=== PATIENT | female | born 1990 | race Caucasian/White ===

== ENCOUNTER 2017-08-17 17:44 | Emergency (ER) | payer OTHER ==
[~2017-08-17] VITALS: Ht 160 cm; Wt 51.5 kg
[~2017-08-17 17:44] MED LIST: BACTRIM,SEPT1 TABLET PO; Levaquin PO; MIRALAX17 GM PO; MOTRIN800 MG PO; Motrin PO; NAPROSYN500 MG PO; NOHOMEMEDS; PERCOCET 5/31 TABLET PO; Percocet 5/325,Endoc PO
[2017-08-17] MEDS ORDERED: MOTRIN600 MG PO (19:22)
[2017-08-17] MEDS ORDERED: PERCOCET 5/31 TABLET PO (19:22)
[2017-08-17 20:09] VITALS: BP 107/77
== END 2017-08-17 20:12 | disposition home or self-care (01) ==
LOC: EME 17:44
PROC: 2W3CX1Z Immobilization of Right Lower Arm using Splint (ICD-10-PCS; principal; 2017-08-17)
DX: S62.306A Unspecified fracture of fifth metacarpal bone, right hand, initial encounter for closed fracture (principal); W18.30XA Fall on same level, unspecified, initial encounter; Y93.K1 Activity, walking an animal; Z88.1 Allergy status to other antibiotic agents; Z88.6 Allergy status to analgesic agent; Z88.5 Allergy status to narcotic agent; Z91.041 Radiographic dye allergy status
CPT/HCPCS: 73130; 99281; 99283